=== PATIENT | female | born 1955 | race Caucasian/White ===

== ENCOUNTER 2016-07-29 09:26 | Day surgery (SDC) | payer BC ==
[~2016-07-29] VITALS: Ht 167.6 cm; Wt 97.0 kg
[~2016-07-29 09:26] MED LIST: ADVAIR 250/28 DISKUS IH; ALPHAGAN 15 ML15 ML; AMOXICILLIN 8751 TAB PO; CALAN SR240 MG PO; CIPRO 500MG TA500 MG PO; DIFLUCAN 100MG100 MG PO; DITROPAN XL 5MG5 M1 PO; Detrol LA PO; FLONASE NASAL S16 GM NS; FLONASEALLERGY NS; FORT1000TA PO; GENTAMICIN180 MG/502 NS; GLUCOPHAGE500 MG/TAB PO; GLUCOTROL 5M5 MG/TAB PO; LEVAQUIN 750MG750 M1 PO; LEVSIN 0.10.125 MG/T SL; LIPITOR 40MG TA40 MG PO; LIPITOR20 MG PO; LORTAB 5/500 501 TAB PO; NORCO 325 MG-51 TAB PO; PREDNISONE20 MG PO; PRILOSEC 20MG20 MG PO; PYRIDIUM 100MG100 MG PO; SINGULAIR 110 MG/TAB PO; VERAPAMIL240 MG/TAB PO; VITAMIN D 1001000 IU; ZETIA10 MG PO; ZITHROMAX Z PA250 MG PO; ZOCOR5 MG PO; ZOFRAN 4MG T4 MG/TAB PO; ZYRTEC 10MG10 MG PO; [UNRECOGNIZED DRUG - REMARK]
[2016-07-29] MEDS ORDERED: PRIL40 PO (09:53)
[2016-07-29] MEDS ORDERED: PREDNISONE10 MG PO (09:54)
[2016-07-29 10:29] VITALS: BP 143/80; PULSE 95; TEMP 98
[2016-07-29 11:52] VITALS: BP 157/74; PULSE 78; TEMP 98.1
[2016-07-29 12:07] VITALS: BP 152/74; PULSE 91; TEMP 98
[2016-07-29 12:22] VITALS: BP 163/51; PULSE 96; TEMP 98.1
[2016-07-29 15:51] VITALS: BP 140/82; PULSE 82
== END 2016-07-29 13:13 | disposition home or self-care (01) ==
LOC: SDCO 09:26
DX: R05 Cough (principal); R06.02 Shortness of breath; R09.89 Other specified symptoms and signs involving the circulatory and respiratory systems; J98.09 Other diseases of bronchus, not elsewhere classified
CPT/HCPCS: J2704; J3010; J7030

== ENCOUNTER → 2017-04-06 | Outpatient (CLI) | payer BC ==
[~2017-04-06] MED LIST changes: +PREDNISONE10 MG PO; +PRIL40 PO
== END ==
LOC: MC.RAD 16:38
DX: Z12.31 Encounter for screening mammogram for malignant neoplasm of breast (principal)

== ENCOUNTER → 2019-06-03 | Outpatient (CLI) | payer BC | LOC: MC.RAD 11:25 | DX: Z12.31 Encounter for screening mammogram for malignant neoplasm of breast (principal) ==

== ENCOUNTER → 2019-11-14 | Day surgery (SDC) | payer BC ==
[~2019-11-14] VITALS: Ht 165.1 cm; Wt 97.4 kg
[2019-11-14] VITALS (7 sets, daily range): BP systolic 136–168; BP diastolic 51–86; PULSE 14–99; TEMP 97.9–98.2
[~2019-11-14] MED LIST changes: +BENADRYL50 MG; +GLUCOTROL10 MG PO; +HCTZ12.5TAB PO
--- NOTE | 2019-11-14 15:55 | NUR ---
TO RM 5 PER CART FROM PACU. DROWSY AND WILL ANSWER TO NAME. C/O PAIN, BUT FALLS BACK TO SLEEP. 02 SAT 93% ON 2L PER NC. ENCOURAGED TO TAKE DEEP BREATHS. SHE WILL TAKE DEEP BREATHS AND FALLS BACK TO SLEEP.
--- NOTE | 2019-11-14 16:30 | NUR ---
MORE AWAKE AND RECEIVED JELLO.
--- NOTE | 2019-11-14 16:45 | NUR ---
PATIENT FELL ASLEEP HOLDING JELLO. CONTINUES TO C/O PAIN 61/0, THEN FALLS ASLEEP.
--- NOTE | 2019-11-14 17:00 | NUR ---
DR CHAKRABORTY UPDATED ON PATIENT BEING DROWSY AND NOT MAKEING MUCH PROGRESS FOR DISCHARGE. ORDER TO ADMIT TO FLOOR FOR OVERNIGHT OBSERVATION. SPEECH AND HEARING DIRECTOR CALLED.
--- NOTE | 2019-11-14 17:30 | NUR ---
C/O OF BUT BEING SORE. SAT IN BED FOR A FEW MINUTES AND THEN TURNED SELF TO SIDE AND BACK TO SLEEP.
--- NOTE | 2019-11-14 17:45 | NUR ---
RECEIVED 2 NEW WARM BLANKETS. [place] TEXTED SON ABOUT SPENDING THE NIGHT
--- NOTE | 2019-11-14 18:15 | NUR ---
CALLED REPORT TO FLOOR NURSE PERRY
--- NOTE | 2019-11-14 18:31 | NUR ---
PATIENT TRANSFERED UP TO 343- UPON ARRIVING TO . PATIENT AMBULATED TO BATHROOM AND VOIDED.
== END ==
LOC: SDCO 10:42
DX: N20.0 Calculus of kidney (principal); E11.9 Type 2 diabetes mellitus without complications; J44.9 Chronic obstructive pulmonary disease, unspecified; K21.9 Gastro-esophageal reflux disease without esophagitis; K44.9 Diaphragmatic hernia without obstruction or gangrene; I34.1 Nonrheumatic mitral (valve) prolapse; Z79.899 Other long term (current) drug therapy; Z79.84 Long term (current) use of oral hypoglycemic drugs; Z88.5 Allergy status to narcotic agent; Z91.040 Latex allergy status; Z87.891 Personal history of nicotine dependence; Z80.9 Family history of malignant neoplasm, unspecified; Z82.49 Family history of ischemic heart disease and other diseases of the circulatory system; Z87.440 Personal history of urinary (tract) infections; Z86.19 Personal history of other infectious and parasitic diseases
CPT/HCPCS: C1769; C1894; C2617; J0690; J1170; J1885; J2405; J2704; J3010; J7030

== ENCOUNTER → 2020-03-30 | Outpatient (CLI) | payer BC | LOC: COL.RAD 09:24 | DX: N13.2 Hydronephrosis with renal and ureteral calculous obstruction (principal); K80.20 Calculus of gallbladder without cholecystitis without obstruction; K76.0 Fatty (change of) liver, not elsewhere classified ==

== ENCOUNTER → 2020-06-08 | Outpatient (CLI) | payer BC | LOC: MC.RAD 11:15 | DX: Z12.31 Encounter for screening mammogram for malignant neoplasm of breast (principal) ==

== ENCOUNTER 2021-05-19 00:46 | Observation (INO) | payer MEDICARE, BC ==
[2021-05-19] VITALS (13 sets, daily range): BP systolic 100–142; BP diastolic 40–81; PULSE 73–122; TEMP 97.8–98.9
[~2021-05-19] VITALS: Ht 165.1 cm; Wt 97.5 kg
[2021-05-19 01:15] LABS: BASO % 0.3 % (0.0-2.0); EOS # 0.1 K/mm3 (0.0-0.7); EOS % 0.4 % (0-4.0); GRAN # 11.3 K/mm3 (1.4-6.5); GRAN % 79.6 % (42.2-75.2); HEMATOCRIT 43.9 % (37.0-47.0); HEMOGLOBIN 14.8 g/dl (12.5-16.0); LYMPH # 1.9 K/mm3 (1.2-3.4); LYMPH % 13.4 % (20.0-51.0); MEAN CELL VOLUME 89 fl (80.0-100.0); MEAN CORPUSCULAR HEMOGLOBIN 30 pg (27.0-31.0); MEAN CORPUSCULAR HGB CONC 34 g/dl (33.0-37.0); MONO # 0.8 K/mm3 (0.1-0.6); MONO % 5.8 % (1.7-9.3); PLATELET COUNT 452 K/mm3 (130-400); RED BLOOD COUNT 4.93 M/mm3 (4.10-5.30); REDCELL DISTRIBUTION WIDTH-CV 12.7 % (11.5-14.5)
[2021-05-19 01:34] LABS: BILIRUBIN,TOTAL 0.9 mg/dL (0.2-1.2); CALCIUM 10.2 mg/dL (8.4-10.2); CREATININE, serum 1.01 mg/dL (0.57-1.11); POTASSIUM 4.4 mmol/L (3.5-4.5); TOTAL PROTEIN 6.8 gm/dL (6.2-8.1)
[2021-05-19 02:55] LABS: COLLECTION METHOD CLEAN CATCH
[2021-05-19 03:03] LABS: MUCOUS Present /lpf; PH 5 (5-8); SQUAMOUS EPITHELIAL 0-2 /hpf; URINE APPEARANCE Clear; URINE BACTERIA None Seen /hpf; URINE BILIRUBIN Negative (NEGATIVE); URINE BLOOD 3+ (NEGATIVE); URINE COLOR Yellow; URINE GLUCOSE 2+ (NEGATIVE); URINE KETONE 1+ (NEGATIVE); URINE LEUKOCYTE ESTERASE Negative (NEGATIVE); URINE NITRATE Negative (NEGATIVE); URINE PROTEIN(semi-quant) Negative (NEGATIVE); URINE RBC 20-50 /hpf; URINE UROBILINOGEN Negative (NEGATIVE)
--- NOTE | 2021-05-19 04:30 | NUR ---
PATIENT GOT UP TO ROOM 346 AT ABOUT 0430. PATIENT IS ALERT AND ORIENTED X4 SITTING UP IN BED, STEADY GAIT. PATIENT IS NPO. PATIENT STATES SHE IS SUPPOSED TO GET HEART CATH DONE MONDAY AND THAT SHE HAS A HERNIA THAT IS UNREPAIRED. PATIENT HAS IV TO RIGHT FOREARM WITH FLUIDS RUNNING AT 125. PATIENT IS ON 2L O2 VIA NC. PATIENT ALSO STATES SHE IS AWARE OF A GALLSTONE SHE HAS. PATIENT DENIES PAIN OR FURTHER NEEDS AT THIS TIME. CALL LIGHT WITHIN REACH. ADMISSIONS ASSESSMENTS AND MED REQ COMPLETED.
[2021-05-19] MEDS ORDERED: ZYRTEC 10MG10 MG (04:33)
[2021-05-19] MEDS ORDERED: OCTAGAM 10%100 MG/ML IV (05:12)
--- NOTE | 2021-05-19 07:57 | NUR ---
Pt doing well this morning. Dr Mark has been in to see pt, new orders wrote. Pt is aware that surgery is planned for this afternoon. Pain tolerable at this time. She is also aware that she is to not have anything to eat or drink. Call light within reach
--- NOTE | 2021-05-19 10:11 | NUR ---
SW met with the patient to discuss discharge plan. The patient lives alone in [place]. She reports independence with ADLs and does not have any DME. The patient's PCP is Dr. Ena Whiting and she receives her medications from [facility]. She reports no difficulties obtaining her meds. The patient does not have a DPOA-HC in EMR, but she states that she does have one completed and that the document is at home. She states that she designated her son, Dk (ph#[phone]). Dk also lives in [place]. The patient plans to return home upon discharge. No additional needs at this time. *Discharge plan: home*
--- NOTE | 2021-05-19 14:30 | NUR ---
Pt has been up and showered. Followin shower she was having increased complaints of pain. PRN given. Pt now resting with eyes closed, even non labored breathing. Call light within reach
--- NOTE | 2021-05-19 17:20 | NUR ---
Pt off the floor for surgery
--- NOTE | 2021-05-19 19:00 | NUR ---
Pt. to the floor from PACU. Pt. is A&OX3, assessment complete. INT to rt. wrist patent. Pt. on 2 L nc O2 sat at 92%. Will attempt to wheen of O2. Pt. reports pain at a 6 to rt. flank area. Will give meds per orders. Pt. denies further needs, call light within reach.
[2021-05-20 02:56] VITALS: BP 119/59; PULSE 76; TEMP 98.1
[2021-05-20 06:49] LABS: BASO % 0.3 % (0.0-2.0); EOS # 0.2 K/mm3 (0.0-0.7); EOS % 2.1 % (0-4.0); GRAN # 4.4 K/mm3 (1.4-6.5); GRAN % 58.5 % (42.2-75.2); HEMATOCRIT 39.1 % (37.0-47.0); LYMPH # 2.3 K/mm3 (1.2-3.4); LYMPH % 30.7 % (20.0-51.0); MEAN CORPUSCULAR HGB CONC 32 g/dl (33.0-37.0); MEAN PLATELET VOLUME 9.1 fl (7.4-10.4); MONO # 0.6 K/mm3 (0.1-0.6); MONO % 8.1 % (1.7-9.3); RED BLOOD COUNT 4.13 M/mm3 (4.10-5.30); REDCELL DISTRIBUTION WIDTH-CV 13.1 % (11.5-14.5)
[2021-05-20 06:55] LABS: HEMOGLOBIN 12.4 g/dl (12.5-16.0); MEAN CELL VOLUME 95 fl (80.0-100.0); MEAN CORPUSCULAR HEMOGLOBIN 30 pg (27.0-31.0); PLATELET COUNT 346 K/mm3 (130-400)
[2021-05-20 07:00] VITALS: BP 120/53; PULSE 79; TEMP 98.4
[2021-05-20 07:03] LABS: CALCIUM 8.9 mg/dL (8.4-10.2); CREATININE, serum 0.84 mg/dL (0.57-1.11); POTASSIUM 3.7 mmol/L (3.5-4.5)
--- NOTE | 2021-05-20 07:27 | NUR ---
REPORT RECIEVED FROM MECHANICAL PRODUCT ENGINEER. PT RESTING IN BED. NO COMPLAINTS OF PAIN OR DYSPNEA. NO SIGNS OR SYMPTOMS OF DISTRESS. CALL LIGHT WITHIN REACH
[2021-05-20] MEDS ORDERED: FLOMAX 0.40.4 MG/CAP PO (08:28)
--- NOTE | 2021-05-20 09:41 | NUR ---
An exercise oximetry was ordered. RT notified SW that the patient qualified for 2 liters of oxygen with ambulation. RT notified SW that the patient informed him that she will not use the oxygen. SW met with the patient to review the above and discussed getting her set up with the oxygen. The patient reports that she respectfully declines having SW get her set up with oxygen. She reports that she does not want to go down that rabbit hole. The patient had no questions or concerns for SW. SW updated the PA.
--- NOTE | 2021-05-20 10:43 | NUR ---
Pt in bed IV discontinued. Main nurse form hospital providing discharge teaching. Pt verbalizes understanding and it waiting for son to come to pick pt up.
--- NOTE | 2021-05-20 12:17 | NUR ---
PT DISCHARGED. VERBALIZES UNDERSTANDING OF TEACHING. IV REMOVED. ALL QUESTIONS ANSWERED
--- NOTE | 2021-05-20 12:20 | NUR ---
This student assisted pt off unit and into pt's son's car at approx 1050.
== END 2021-05-20 12:18 | disposition home or self-care (01) ==
LOC: COL.ER 00:46 → SURG 03:22
PROVIDERS: Emergency Medicine; Physician Assistant; ADMIT Internal Medicine
DX: N20.1 Calculus of ureter (principal); I34.1 Nonrheumatic mitral (valve) prolapse; J44.9 Chronic obstructive pulmonary disease, unspecified; K21.9 Gastro-esophageal reflux disease without esophagitis; K44.9 Diaphragmatic hernia without obstruction or gangrene; E11.9 Type 2 diabetes mellitus without complications; M19.90 Unspecified osteoarthritis, unspecified site; J96.02 Acute respiratory failure with hypercapnia; I10 Essential (primary) hypertension; D80.3 Selective deficiency of immunoglobulin G [IgG] subclasses; I44.0 Atrioventricular block, first degree; E78.5 Hyperlipidemia, unspecified; J98.4 Other disorders of lung; Z90.710 Acquired absence of both cervix and uterus; Z79.899 Other long term (current) drug therapy; Z79.84 Long term (current) use of oral hypoglycemic drugs; Z87.891 Personal history of nicotine dependence
CPT/HCPCS: OP; 99239; C1769; C2617; G0378; J0690; J1885; J2270; J2405; J2704; J3010; J7030; Q9967

== ENCOUNTER 2021-05-24 06:58 | Day surgery (SDC) | payer MEDICARE ==
[~2021-05-24] VITALS: Ht 165.2 cm; Wt 99.0 kg
[2021-05-24] VITALS (11 sets, daily range): BP systolic 118–149; BP diastolic 44–82; PULSE 72–94; TEMP 98
[~2021-05-24 06:58] MED LIST changes: +FLOMAX 0.40.4 MG/CAP PO; +OCTAGAM 10%100 MG/ML IV; +ZYRTEC 10MG10 MG
[2021-05-24 08:06] LABS: HEMOGLOBIN 13.8 g/dl (12.5-16.0); MEAN CELL VOLUME 92 fl (80.0-100.0); MEAN CORPUSCULAR HEMOGLOBIN 30 pg (27.0-31.0); MEAN CORPUSCULAR HGB CONC 33 g/dl (33.0-37.0); MEAN PLATELET VOLUME 8.8 fl (7.4-10.4); PLATELET COUNT 378 K/mm3 (130-400); RED BLOOD COUNT 4.56 M/mm3 (4.10-5.30); REDCELL DISTRIBUTION WIDTH-CV 12.8 % (11.5-14.5)
[2021-05-24 08:19] LABS: INR 0.9 (0.8-3.0); PROTHROMBIN TIME 10.4 SECONDS (9.7-12.8)
--- NOTE | 2021-05-24 08:19 | NUR ---
SEE MERGE FOR ALL MEDICATION ADMINISTRATION TIMES/DOSAGES AND INTRA/POST SEDATION ASSESSMENT.
[2021-05-24 08:21] LABS: CALCIUM 9.7 mg/dL (8.4-10.2); CREATININE, serum 0.71 mg/dL (0.57-1.11); POTASSIUM 3.5 mmol/L (3.5-4.5)
[2021-05-24 08:22] LABS: PARTIAL THROMBOPLASTIN TIME 28.2 SECONDS (26.0-37.0)
--- NOTE | 2021-05-24 09:45 | NUR ---
pt returned to eu 14 via bed from construction or leak gang laborer, son in room, Dr Montoya also spoke with pt. call light in reach, takes water and meal ordered. radial band intact with no signs of bleeding or swelling
--- NOTE | 2021-05-24 10:43 | NUR ---
SITS UP IN BED, WAITS FOR MEAL, VISITS WITH SON, NO C/O
--- NOTE | 2021-05-24 11:45 | NUR ---
START OF RELEASING AIR FROM BAND 2CC AT A TIME OVER 30 MIN WITH NO BLEEDING, SWELLING OR SIGNS OF BLEEDING TO SITE, BANDAID APPLIED THEN COBAN FOR SUPPORT
--- NOTE | 2021-05-24 12:30 | NUR ---
PT IS UP IN ROOM, TO B/R TO VOID. NO C/O IV D'CD INTACT.
--- NOTE | 2021-05-24 13:30 | NUR ---
PT UP IN ROOM, DRESSED. IV DC'D INTACT, WAITING FOR DISCHARGE ORDER. REVIEWED INST. ON CARE OF SITE, ACTIVITY, MODERATE SEDATION PRECAUTIONS WITH VERBAL UNDERSTANDING. ORDER RECIEVED FOR DISCHARGE, NO NEW MEDS, WILL HOLD METFORMIN FOR 48 HOURS, NEXT APPT MADE, PT DISCHARGED VIA W/C TO CAR TO SON AT 1345
== END 2021-05-24 13:45 | disposition home or self-care (01) ==
LOC: COL.CAR 06:58
PROVIDERS: Internal Medicine Cardiovascular Disease
DX: R06.00 Dyspnea, unspecified (principal); R06.02 Shortness of breath; R94.39 Abnormal result of other cardiovascular function study; I44.0 Atrioventricular block, first degree; K21.9 Gastro-esophageal reflux disease without esophagitis
CPT/HCPCS: C1769; J1644; J2250; J3010; Q9967

== ENCOUNTER → 2021-07-21 | Outpatient (CLI) | payer MEDICARE | LOC: COL.RAD 09:50 | DX: E21.0 Primary hyperparathyroidism (principal) | CPT/HCPCS: A9500 ==

== ENCOUNTER 2022-07-07 12:44 | Observation (INO) | payer MEDICARE, BC ==
[~2022-07-07] VITALS: Ht 165.1 cm; Wt 95.5 kg
[2022-07-07] VITALS (7 sets, daily range): BP systolic 119–150; BP diastolic 59–111; PULSE 80–107; TEMP 98.2
[2022-07-07] MEDS ORDERED: FLOMAX 0.40.4 MG/CAP PO (16:46)
[2022-07-07] MEDS ORDERED: ROXICODONE 55 MG/TAB PO (16:46)
--- NOTE | 2022-07-07 18:39 | NUR ---
Received patient to the unit from PACU at 1815. drowsy but easily awake. Place patient on O2 2L/Nc. Family members at the bedside. Will continue to monitor patient. ICE chips and water offered. Call mancilla place within reach.
--- NOTE | 2022-07-07 21:57 | NUR ---
Patient assessed around 1934. Alert and oriented, and able to make needs known. Assisted to bedside commode around 190, had hematuria. Given Toradol for level 8, left flank pain. On oxygen at 2 L/min via oxymask. Denies SOB and dyspnea. LS CTA. HRR. BSAx4. Voices no questions, needs, or concerns at this time. In bed with call light within reach.
[2022-07-08] VITALS: BP 114/58; PULSE 81; TEMP 98.1
[2022-07-08 04:29] VITALS: BP 111/56; PULSE 76; TEMP 98.2
--- NOTE | 2022-07-08 06:15 | NUR ---
Patient has received PRN Toradol as requested throughout the night. Continues on IV fluids per orders. Hematuria. Reports decreased pain and burning with urination. Voices no questions, needs, or concerns at this time. In bed with call light within reach.
[2022-07-08] MEDS ORDERED: BACTRIM DS 8001 TAB PO (07:29)
[2022-07-08 07:45] VITALS: BP 130/46; PULSE 77; TEMP 98
--- NOTE | 2022-07-08 09:45 | NUR ---
Pt. sitting up in chair. Pt. is A&OX3, assessment complete. INT to rt wrist patent. Pt. reports pain at a 4 on pain scale, will give pain meds per orders. Pt. denies further needs, call light within reach.
[2022-07-08 11:13] VITALS: BP 138/52; PULSE 70; TEMP 98.1
--- NOTE | 2022-07-08 12:15 | NUR ---
Pt. has met discharge criteria. Pt. given and reveiwed discharge paperwork. INT discontinued from rt. wrist. Pt. escorted out.
--- NOTE | 2022-07-08 16:48 | NUR ---
Kathia: Sabian[employer] Situation: health researcher went by room on rounds Background: Pt was resting and content Assessment: Pt has no needs right now. Recommendation: health researcher will follow up as needed
[2022-07-19] MEDS ORDERED: UROCIT-K15 MEQ PO (10:53)
== END 2022-07-08 13:33 | disposition home or self-care (01) ==
LOC: SURG 12:44 → EDSTATUS 15:30 → SURG 15:30
PROVIDERS: ADMIT Urology
DX: N20.2 Calculus of kidney with calculus of ureter (principal)
CPT/HCPCS: C1769; C2617; G0378; J0690; J1100; J1885; J2270; J2405; J2543; J2704; J3010; J7030

== ENCOUNTER 2023-04-23 08:20 | Emergency (ER) | payer MEDICARE, BC ==
[~2023-04-23] VITALS: Ht 165.1 cm; Wt 96.8 kg
[~2023-04-23 08:20] MED LIST changes: +BACTRIM DS 8001 TAB PO; +ROXICODONE 55 MG/TAB PO; +UROCIT-K15 MEQ PO
[2023-04-23 08:58] LABS: HEMATOCRIT 48.5 % (37.0-47.0); HEMOGLOBIN 16.4 g/dl (12.5-16.0); MEAN CELL VOLUME 88 fl (80.0-100.0); MEAN CORPUSCULAR HEMOGLOBIN 30 pg (27-31); MEAN CORPUSCULAR HGB CONC 34 g/dl (33.0-37.0); MEAN PLATELET VOLUME 8.8 fl (7.4-10.4); PLATELET COUNT 440 K/mm3 (130-400); RED BLOOD COUNT 5.54 M/mm3 (4.10-5.30); REDCELL DISTRIBUTION WIDTH-CV 12.6 % (11.5-14.5)
[2023-04-23 09:07] LABS: COLLECTION METHOD CLEAN CATCH
[2023-04-23 09:14] LABS: ALBUMIN 3.6 gm/dL (3.4-4.8); BILIRUBIN,TOTAL 0.7 mg/dL (0.2-1.2); CREATININE, serum 0.86 mg/dL (0.57-1.11); MAGNESIUM 1.3 mg/dL (1.6-2.6); POTASSIUM 3.8 mmol/L (3.5-4.5); TOTAL PROTEIN 7.7 gm/dL (6.2-8.1)
[2023-04-23 09:35] LABS: PH 5.5 (5.0-8.5); URINE APPEARANCE Clear (CLEAR/HAZY); URINE BLOOD 1+ (NEGATIVE); URINE COLOR Yellow (YELLOW); URINE GLUCOSE Negative (NEGATIVE); URINE KETONE Negative (NEGATIVE); URINE NITRATE Negative (NEGATIVE); URINE PROTEIN(semi-quant) 1+ (NEGATIVE); URINE UROBILINOGEN 0.2 E.U/dL (0.2-1.0)
[2023-04-23 09:36] LABS: URINE BACTERIA None Seen /hpf (NONE SEEN); URINE RBC 0-2 /hpf (0-2)
[2023-04-23 09:42] LABS: BAND 3 % (0-10); LYMPHOCYTE 22 % (20.0-51.0); METAMYELOCYTE 1 % (0-0); MYELOCYTE 1 % (0-0); NEUTROPHILS 50 % (42.0-75.2)
[2023-04-23 09:43] LABS: PLATELET ESTIMATE INCREASED (NORMAL)
[2023-04-23] MEDS ORDERED: FLAGYL500 MG PO (10:41)
[2023-04-23] MEDS ORDERED: CIPRO 500MG TA500 MG PO (10:41)
[2023-04-23 10:47] VITALS: BP 150/92; PULSE 53; TEMP 97.6
== END 2023-04-23 10:53 | disposition home or self-care (01) ==
LOC: COL.ER 08:20
PROVIDERS: Emergency Medicine
DX: K52.9 Noninfective gastroenteritis and colitis, unspecified (principal); Z91.040 Latex allergy status; Z88.2 Allergy status to sulfonamides
CPT/HCPCS: J7120; Q9967